=== PATIENT | female | born 1945 | race Caucasian/White ===

== ENCOUNTER 2024-12-06 19:27 | Emergency (ER) | payer OTHER, SELFPAY ==
[2024-12-06 19:34] VITALS: BP 112/94
[2024-12-06 19:36] VITALS: BP 112/94
[2024-12-06 20:00] VITALS: BP 107/60
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
[2024-12-06 20:10] LABS: Hematocrit 39.6 % (37.0-47.0); Hemoglobin 12.5 g/dL (12.0-16.0); Mean Corp Hgb Conc. 31.6 g/dL (33.0-37.0); Mean Corpuscular Volume 79.5 fL (81.0-99.0); Nucleated Red Blood Cells % 0 %; Platelet Count 163 10^3/uL (130-400); Red Cell Dist. Width 15.4 % (11.5-14.5)
[2024-12-06 20:30] LABS: ALT (SGPT) 14 U/L (0-35); AST (SGOT) 18 U/L (14-36); Albumin 4.5 g/dl (3.5-5.0); Alkaline Phosphatase 107 U/L (38-126); Blood Urea Nitrogen 19 mg/dl (7-17); Calcium 9.6 mg/dl (8.4-10.2); Carbon Dioxide 29 mmol/L (22-30); Chloride 109 mmol/L (98-107); Glucose 115 mg/dl (70-99); Potassium 4.3 mmol/L (3.5-5.1); Sodium 142 mmol/L (135-145); Total Protein 6.6 g/dl (6.3-8.2); eGFR > 60.00
[2024-12-06 21:00] VITALS: BP 119/71
[2024-12-06 22:00] VITALS: BP 123/96
[2024-12-06 22:03] LABS: Urine Character Clear (Clear)
[2024-12-06 22:10] LABS: Urine Red Blood Cell 0-2 /HPF (0-2); Urine Squamous Cell 0-2 /LPF (Few); Urine White Cell 0-2 /HPF (0-5)
== END 2024-12-06 22:46 | disposition home or self-care (01) ==
LOC: EMR 19:27
PROVIDERS: EMERGENCY PHYSICIAN Emergency Medicine; FAMILY PHYSICIAN Student in an Organized Health Care Education/Training Program
DX: S09.90XA Unspecified injury of head, initial encounter (principal); R42 Dizziness and giddiness; R41.82 Altered mental status, unspecified; W18.39XA Other fall on same level, initial encounter; H35.30 Unspecified macular degeneration; Z85.3 Personal history of malignant neoplasm of breast; Z88.1 Allergy status to other antibiotic agents
CPT/HCPCS: 99284; 70450; 80053; 81003; 81015; 85025; 93005